=== PATIENT | male | born 1945 | race Caucasian/White ===

== ENCOUNTER 2017-09-01 15:58 | Emergency (ER) | payer MEDICARE, MEDICAID ==
[2017-09-01 17:50] VITALS: BP 134/53
--- NOTE | 2017-09-02 16:26 | UC ---
Skin Complaint HPI - HPI Summary HPI Summary: Patient is a 71-year-old male who presents to the urgent care for evaluation of chronic left foot wound. Patient has had ulceration to his left foot over the last 6 months after having a callus removed. He was following with the wound clinic was cleared. Patient's friend helps change his dressing and noted there was a green drainage. Patient denies fever, chills, nausea, vomiting, increased pain to foot. Symptoms are mild in severity. Is not diabetic. - History of Current Complaint Chief Complaint: UCWounds Time Seen by Provider: 09/01/17 17:56 Stated Complaint: SKIN COMPLAINT - RT FOOT Hx Obtained From: Patient, Family/Pumper Head Pain Intensity: 0 Pain Scale Used: 0-10 Numeric - Allergy/Home Medications Allergies/Adverse Reactions: Allergies Allergy/AdvReac Type Severity Reaction Status Date / Time No Known Allergies Allergy Verified 09/01/17 17:50 Home Medications: Home Medications Furosemide TAB* [Lasix TAB*] 10 mg PO DAILY 09/01/17 [History Confirmed 09/01/17 ] Gabapentin CAP(*) [Neurontin 100 mg CAP(*)] 100 mg PO TID 09/01/17 [History Confirmed 09/01/17] Meloxicam 7.5 mg PO BID 09/01/17 [History Confirmed 09/01/17] Mirtazapine TAB* [Remeron TAB*] 15 mg PO BEDTIME 09/01/17 [History Confirmed 04/09] Omeprazole CAP* [Prilosec CAP* 20 MG] 20 mg PO DAILY 09/01/17 [History Confirmed 09/01/17] Pravastatin (NF) [Pravachol (NF)] 10 mg PO 1700 09/01/17 [History Confirmed 04/09] Tamsulosin CAP* [Flomax CAP*] 2 cap PO BEDTIME 09/01/17 [History Confirmed 09/01] buPROPion TAB* [Wellbutrin TAB*] 75 mg PO BID 09/01/17 [History Confirmed ] busPIRone TAB* [Buspar TAB *] 10 mg PO TID 09/01/17 [History Confirmed 09/01/17] oxyCODONE TAB* [Roxycodone TAB 5 mg*] 5 mg PO TID PRN 09/01/17 [History Confirmed 09/01/17] Review of Systems Constitutional: Negative Skin: Other - Wound to botter of left foot All Other Systems Reviewed And Are Negative: Yes PMH/Surg Hx/FS Hx/Imm Hx Previously Healthy: Yes - Surgical History Surgical History: Yes Surgery Procedure, Year, and Place: ear surgery 1971 - Social History Alcohol Use: None Substance Use Type: None Smoking Status (MU): Never Smoked Tobacco Physical Exam Triage Information Reviewed: Yes Appearance: Well-Appearing - Pt. sitting on chair in NAD. Family member present. Vital Signs: Initial Vital Signs Temp 98.6 F 09/01/17 17:42 Pulse 78 09/01/17 17:42 Resp 16 09/01/17 17:42 BP 134/53 09/01/17 17:42 Pulse Ox 100 09/01/17 17:42 Vital Signs Reviewed: Yes Eyes: Positive: Conjunctiva Clear Neck: Positive: Supple Musculoskeletal: Positive: Other: - There is a roughly 0.5cm healing ulceration noted over the MTP joint on the plantar aspect. No drainage. No surrounding erythema or edema. Neurological Exam: Normal Psychological Exam: Normal Course/Dx - Course Course Of Treatment: Patient presenting for an evaluation of a left chronic foot wound. On exam is a small ulceration to his left foot without signs of infection. Patient was reassured. He'll follow up with his family doctor. Discharged home stable with family. - Differential Diagnoses - Skin Complaint Differential Diagnoses: Abscess, Cellulitis - Diagnoses Provider Diagnoses: Foot ulcer Discharge - Sign-Out/Discharge Documenting (check all that apply): Discharge/Admit/Transfer - Discharge Plan Condition: Good Disposition: HOME Patient Education Materials: Chronic Wound Care (ED) Referrals: Rhys Antonio MD [Primary Care Provider] - Additional Instructions: Your foot wound today does not appear to be infected Keep wound clean and dry See your PCP or return to for redness, pain, drainage or swelling to wound - Billing Disposition and Condition Condition: GOOD Disposition: HOME
== END 2017-09-01 18:21 | disposition home or self-care (01) ==
LOC: UCCORT 15:58
DX: L98.499 Non-pressure chronic ulcer of skin of other sites with unspecified severity (principal)
CPT/HCPCS: 99201; G0463